=== PATIENT | female | born 1955 | race Caucasian/White ===

== ENCOUNTER → 2017-08-17 | Outpatient (CLI) | payer BC ==
[~2017-08-17] MED LIST: MOBIC15 MG PO; SORIATANE25 MG PO
== END ==
LOC: MC.RAD 11:16
DX: Z12.31 Encounter for screening mammogram for malignant neoplasm of breast (principal)

== ENCOUNTER → 2018-08-15 | Outpatient (CLI) | payer BC | LOC: COL.PUL 08:39 | DX: D45 Polycythemia vera (principal) ==

== ENCOUNTER → 2018-08-20 | Outpatient (CLI) | payer BC | LOC: COL.PUL 08:45 | DX: D45 Polycythemia vera (principal); R06.02 Shortness of breath ==

== ENCOUNTER → 2020-10-08 | Outpatient (CLI) | payer BC | LOC: MC.RAD 14:39 | DX: Z12.31 Encounter for screening mammogram for malignant neoplasm of breast (principal) ==